=== PATIENT | male | born 1980 ===

== ENCOUNTER 2016-05-25 09:28 | Observation (INO) | payer OTHER ==
[2016-05-25 09:43] VITALS: BMI 28.0
[2016-05-25 10:00] VITALS: TEMP 97.6
[2016-05-25] MEDS ORDERED: Morphine 2 mg/ml ISec IVP STA (10:10)
[2016-05-25] MEDS ORDERED: Morphine 4 mg/ml ISec IVP STA ×2 (10:21→12:26)
--- NOTE | 2016-05-25 10:22 | ED PDOC ---
Arrival/HPI - General Historian: Patient - History of Present Illness Time/Duration: Prior to Arrival, 1 hour Symptom Onset: Sudden Symptom Course: Unchanged Severity Level: 7, 8 <Mukund Bee - Last Filed: 05/25/16 14:36> <Rica Black - Last Filed: 05/25/16 14:58> - General Chief Complaint: Back Pain Time Seen by Provider: 05/25/16 09:38 - History of Present Illness Narrative History of Present Illness (Text): 05/25/16 10:08 This is a 35 year old male without PMH presenting with acute onset low back pain. The patient reports that he was lifting a propane tank at work and then felt a pop followed by a sharp sudden pain in his low back. The patient also notes that he felt numbness across the plantar aspect of his toes. The patient states that he was able to ambulate following the injury, but the pain in his back kept him from maintaining an erect posture. The patient denies radicular type pain to either leg, and he also denies bowel/bladder incontinence. The patient states that advil did not help his pain. The patient has never experienced pain like this before. (Mukund Bee) Past Medical History - Provider Review Nursing Documentation Reviewed: Yes - Past History Past History: No Previous - Infectious Disease Hx of Infectious Diseases: None - Tetanus Immunization Tetanus Immunization: Unknown - Past Medical History Past Medical History: No Previous <Mukund Bee - Last Filed: 05/25/16 14:36> - Cardiac Hx Cardiac Disorders: No - Pulmonary Hx Respiratory Disorders: No - Neurological Hx Neurological Disorder: No - HEENT Hx HEENT Disorder: No - Renal Hx Renal Disorder: No - Endocrine/Metabolic Hx Endocrine Disorders: No - Hematological/Oncological Hx Blood Disorders: No - Integumentary Hx Dermatological Disorder: No - Musculoskeletal/Rheumatological Hx Musculoskeletal Disorders: No - Gastrointestinal Hx Gastrointestinal Disorders: No - Genitourinary/Gynecological Hx Genitourinary Disorders: No - Psychiatric Hx Psychophysiologic Disorder: No Hx Substance Use: No - Anesthesia Hx Anesthesia: No <Rica Black - Last Filed: 05/25/16 14:58> Family/Social History - Physician Review Nursing Documentation Reviewed: Yes Family/Social History: No Known Family HX Smoking Status: Never Smoked Hx Alcohol Use: No Hx Substance Use: No <Mukund Bee - Last Filed: 05/25/16 14:36> Smoking Status: Never Smoked Hx Alcohol Use: No Hx Substance Use: No <Rica Black - Last Filed: 05/25/16 14:58> Allergies/Home Meds <Mukund Bee - Last Filed: 05/25/16 14:36> <Rica Black - Last Filed: 05/25/16 14:58> Allergies/Adverse Reactions: Allergies No Known Allergies Allergy (Verified 05/25/16 09:43) Review of Systems - Physician Review All systems were reviewed & negative as marked: Yes - Review of Systems Constitutional: absent: Fatigue Eyes: absent: Vision Changes Respiratory: absent: SOB Cardiovascular: absent: Chest Pain Gastrointestinal: absent: Abdominal Pain Genitourinary Male: absent: Dysuria Musculoskeletal: Back Pain, Myalgias Skin: absent: Rash Neurological: Gait Changes. absent: Dizziness, Focal Weakness Psychiatric: absent: Anxiety <uMkund Bee - Last Filed: 05/25/16 14:36> Physical Exam Temperature: Afebrile Blood Pressure: Normal Pulse: Regular Respiratory Rate: Normal Appearance: Positive for: Non-Toxic. No: Comfortable Pain Distress: Severe Mental Status: Positive for: Alert and Oriented X 3 - Systems Exam Head: Present: Atraumatic, Normocephalic Pupils: Present: PERRL Extroacular Muscles: Present: EOMI Conjunctiva: Present: Normal Mouth: Present: Moist Mucous Membranes Neck: Present: Normal Range of Motion Respiratory/Chest: Present: Clear to Auscultation, Good Air Exchange. No: Respiratory Distress, Accessory Muscle Use Cardiovascular: Present: Regular Rate and Rhythm, Normal S1, S2. No: Murmurs Abdomen: Present: Normal Bowel Sounds. No: Tenderness, Distention, Peritoneal Signs Back: Present: Midline Tenderness, Pain with Leg Raise, Other (hunched posture as position of comfort ) Upper Extremity: Present: Normal Inspection, Normal ROM, NORMAL PULSES, Neurovascularly Intact, Capillary Refill < 2s. No: Cyanosis, Edema Lower Extremity: Present: Normal Inspection, NORMAL PULSES. No: Edema, CALF TENDERNESS, Neurovascularly Intact (paresthesias plantar aspect of right foot digits) Neurological: Present: CN II-XII Intact, Speech Normal. No: Norm Deep Tendon Reflexes (3+/4 patellar reflex on right 2+/4 on the left ), Gait Normal ( antalgic gait 2/2 to back pain ) Skin: Present: Warm, Dry, Normal Color. No: Rashes Psychiatric: Present: Alert, Oriented x 3 <Mukund Bee - Last Filed: 05/25/16 14:36> Vital Signs Temp Pulse Resp BP Pulse Ox 05/25/16 14:51 83 16 98 05/25/16 14:04 85 16 140/95 H 98 05/25/16 12:47 71 16 110/80 100 05/25/16 09:59 97.6 F 80 18 119/82 96 Medical Decision Making Re-evaluation Time: 13:25 Reassessment Condition: Re-examined, Unchanged - RAD Interpretation Inspector Receiving: Radiologist <Mukund Bee - Last Filed: 05/25/16 14:36> <Rica Black - Last Filed: 05/25/16 14:58> ED Course and Treatment: 05/25/16 10:11 Impression: This is a 35 year old male without PMH presenting with acute onset low back pain. The patient has the clinical appearance of a herniated disc. The patient maintains a posture indicative of posterolateral herniation to the right side as he is flexed and sidebect to the right as to maximize interveterbral space on the right side. The patient reports resolution of the paresthesia in his foot with this position. The patient is able to walk although he maintains a forward flexed posture. Differential: Intervertebral Disc Herniation Paraspinal Muscle Pull Lumbosacral Sprain Spinal Stenosis Plan: MRI Lumbar spine Morphine 1mg Prior Visits: None Progress Note: The patient was seen and examined at bedside. The patient has the clinical appearacce of an intervertebral disc herniation. The patient is able to walk, although with an antalgic gait. The patient will be managed with morphine for pain and have an MRI of his lumbar spine 05/25/16 13:26 The patient's lumbar spine MRI revealed moderate degenerative disc changes in addition to foraminal stenosis. The patient reports having began the application for wind[facility] care at [facility]. He was instructed to follow up in that institution if his back pain does no joyce with stretching and PT exercises. The patient reports that his pain is under control. 05/25/16 14:48 The discharge plan was discussed with the patient, and he acknowledged understanding. The patient was medically stabilized and DC home. Patient was able to ambulate without issue prior to discharge. (Mukund Bee) Patient Seen With Resident: In agreement with resident note. Patient was seen and evaluated with resident, came up with plan and treatment together. On evaluation patient had pain but was neurologically intact. He reported history of paresthesias in toe that has since resolved and he reports he thought was secondary to positioning. However , due to this complaint, will get MRI to r/o spinal cord compression. Lumbar Spine MRI: FINDINGS: Normal lumbar lordosis. Vertebral body heights are preserved. Marrow signal unremarkable. Conus medullaris unremarkable at the level of T12-L1 Paraspinal soft tissues are unremarkable. T12-L1: No disc herniation, spinal canal stenosis or neural foraminal narrowing. L1-2: Moderate degenerative disc changes associated with [id number]-cr-tedbrcve narrowing of the disc space. Small to moderate size osteophyte disc bulging complex associated with mild posterior ligament and facet joint hypertrophy which resulting in mild spinal and left neural foraminal narrowing. L2-3: Moderate degenerative disc changes associated with mild narrowing of the disc space. Broad-based disc protrusion associated with mild posterior ligament and facet joint hypertrophy which resulting in mild spinal stenosis. L3-4: Mild degenerative disc changes. Small broad-based disc bulging associated with posterior ligament and facet joint hypertrophy which resulting in mild spinal and lateral recess narrowing bilaterally. L4-5: Small to moderate-sized disc bulging associated with posterior ligament and facet joint hypertrophy which resulting in mild to moderate spinal and lateral recess narrowing bilaterally. L5-S1: Small broad-based disc bulging associated with mild ligament and facet joint hypertrophy which resulting in mild spinal stenosis. IMPRESSION: Moderate degenerative disc changes. Multilevel osteophyte disc bulging complex associated with mild posterior ligament and facet joint hypertrophy which resulting in spinal and neural foramina narrowing as described above. The spinal and neural foramina stenosis are more prominent at L1-L2 and L3-L4. 05/25/16 14:55 On reevaluation, patient is ambulating around the ED. He has no bladder or bowel incontinence and no saddle anesthesia. He reports pain is improved. Patient was offered referral to ortho spine but reports that he will follow-up at hospital closer to his home. He has given detailed return instructions through use of fixture repairer fabricator and he reports understanding that he needs to return immediately with any weakness, numbness, or change in bowel or bladder habits. He was also given copy of MRI. (Rica Black) - RAD Interpretation Narrative RAD Interpretations (Text): 05/25/16 14:49 PROCEDURE: MR LUMBAR SPINE WITHOUT CONTRAST HISTORY: back pain COMPARISON: None available. TECHNIQUE: Multiecho multiplanar sequences were performed through the lumbar spine without the use of intravenous contrast. FINDINGS: Normal lumbar lordosis. Vertebral body heights are preserved. Marrow signal unremarkable. Conus medullaris unremarkable at the level of T12-L1 Paraspinal soft tissues are unremarkable. T12-L1: No disc herniation, spinal canal stenosis or neural foraminal narrowing. L1-2: Moderate degenerative disc changes associated with [id number] narrowing of the disc space. Small to moderate size osteophyte disc bulging complex associated with mild posterior ligament and facet joint hypertrophy which resulting in mild spinal and left neural foraminal narrowing. L2-3: Moderate degenerative disc changes associated with mild narrowing of the disc space. Broad-based disc protrusion associated with mild posterior ligament and facet joint hypertrophy which resulting in mild spinal stenosis. L3-4: Mild degenerative disc changes. Small broad-based disc bulging associated with posterior ligament and facet joint hypertrophy which resulting in mild spinal and lateral recess narrowing bilaterally. L4-5: Small to moderate-sized disc bulging associated with posterior ligament and facet joint hypertrophy which resulting in mild to moderate spinal and lateral recess narrowing bilaterally. L5-S1: Small broad-based disc bulging associated with mild ligament and facet joint hypertrophy which resulting in mild spinal stenosis. OTHER FINDINGS: None. IMPRESSION: Moderate degenerative disc changes. Multilevel osteophyte disc bulging complex associated with mild posterior ligament and facet joint hypertrophy which resulting in spinal and neural foramina narrowing as described above. The spinal and neural foramina stenosis are more prominent at L1-L2 and L3-L4. ( Mukund Bee) Radiology Orders: 05/25/16 10:10 SPINAL CANAL LUMBAR W/O CONT [MRI] Stat - Medication Orders Current Medication Orders: Discontinued Medications Cyclobenzaprine HCl (Flexeril) 5 mg PO STAT STA Stop: 05/25/16 12:27 Last Admin: 05/25/16 12:42 Dose: 5 MG Diazepam (Valium) 5 mg PO STAT STA PRN Reason: Protocol Stop: 05/25/16 13:19 Last Admin: 05/25/16 13:33 Dose: 5 MG Behavioural Document 05/25/16 13:33 [email or web address] (Rec: 05/25/16 13:[address] [id number]) Maintenance Maintenance Dose No Nonmedicinal Nonmedicinal Interventions Redirect Behavior Behavior for Medication: Anxiety Behavior Comment pain Ketorolac Tromethamine (Toradol) 30 mg IVP STAT STA Stop: 05/25/16 13:19 Last Admin: 05/25/16 13:34 Dose: 30 MG IVP Administration Document 05/25/16 13:34 [email or web address] (Rec: 05/25/16 13:[address] [id number]) Charges for Administration # of IVP Administrations 1 Morphine Sulfate (Morphine) 1 mg IVP STAT STA Stop: 05/25/16 10:11 Last Admin: 05/25/16 10:24 Dose: 1 MG MAR Pain Assessment Document 05/25/16 10:24 [email or web address] (Rec: 05/25/16 10:[address] [id number]) Pain Reassessment Is this a pain reassessment? No Sleep Is patient sleeping during reassessment? No Presence of Pain Presence of Pain Yes Pain Scale Used Pain Scale Used Numeric Location Upper or Lower Lower Pain Location Body Site Back Description Description Sharp Intensity of Pain at present 9 Pain Behavior Facial Grimacing Aggravating Factors Changing Position Alleviating Factors/Management Position Change Techniques Alleviating Factors Medication IVP Administration Document 05/25/16 10:24 [email or web address] (Rec: 05/25/16 10:[address] [id number]) Charges for Administration # of IVP Administrations 1 Morphine Sulfate (Morphine) 4 mg IVP STAT STA Stop: 05/25/16 10:22 Last Admin: 05/25/16 10:29 Dose: 4 MG MAR Pain Assessment Document 05/25/16 10:29 [email or web address] (Rec: 05/25/16 10:34 [place] [id number]) Pain Reassessment Is this a pain reassessment? No Sleep Is patient sleeping during reassessment? No Presence of Pain Presence of Pain Yes Pain Scale Used Pain Scale Used Numeric Location Upper or Lower Lower Pain Location Body Site Back Description Description Constant Intensity of Pain at present 9 Pain Behavior Facial Grimacing Aggravating Factors Changing Position Alleviating Factors/Management Position Change Techniques Alleviating Factors Medication IVP Administration Document 05/25/16 10:29 [email or web address] (Rec: 05/25/16 10:34 [email or web address] [id number]) Charges for Administration # of IVP Administrations 1 Morphine Sulfate (Morphine) 8 mg IVP STAT STA Stop: 05/25/16 12:27 Last Admin: 05/25/16 12:41 Dose: 8 MG MAR Pain Assessment Document 05/25/16 12:41 [email or web address] (Rec: 05/25/16 12:[id number]) Pain Reassessment Is this a pain reassessment? No Sleep Is patient sleeping during reassessment? No Presence of Pain Presence of Pain Yes Pain Scale Used Pain Scale Used Numeric Location Upper or Lower Lower Pain Location Body Site Back Description Description Constant Intensity of Pain at present 7 Pain Behavior Facial Grimacing Aggravating Factors Changing Position Alleviating Factors/Management Position Change Techniques Alleviating Factors Medication IVP Administration Document 05/25/16 12:41 [email or web address] (Rec: 05/25/16 12:[id number]) Charges for Administration # of IVP Administrations 1 Disposition/Present on Arrival - Present on Arrival Any Indicators Present on Arrival: No History of DVT/PE: No History of Uncontrolled Diabetes: No Urinary Catheter: No History of Decub. Ulcer: No - Disposition Have Diagnosis and Disposition been Completed?: Yes Disposition Time: 14:00 Patient Plan: Discharge <Mukund Bee - Last Filed: 05/25/16 14:36> - Present on Arrival Any Indicators Present on Arrival: No History of DVT/PE: No History of Uncontrolled Diabetes: No Urinary Catheter: No History of Decub. Ulcer: No History Surgical Site Infection Following: None - Disposition Have Diagnosis and Disposition been Completed?: Yes Disposition Time: 10:59 <Rica Black - Last Filed: 05/25/16 14:58> - Disposition Diagnosis: Spinal stenosis of lumbar region, Lumbar disc disease Disposition: HOME/ ROUTINE Condition: GOOD
--- NOTE | 2016-05-25 12:03 | MRI ---
PROCEDURE: MR LUMBAR SPINE WITHOUT CONTRAST HISTORY: back pain COMPARISON: None available. TECHNIQUE: Multiecho multiplanar sequences were performed through the lumbar spine without the use of intravenous contrast. FINDINGS: Normal lumbar lordosis. Vertebral body heights are preserved. Marrow signal unremarkable. Conus medullaris unremarkable at the level of T12-L1 Paraspinal soft tissues are unremarkable. T12-L1: No disc herniation, spinal canal stenosis or neural foraminal narrowing. L1-2: Moderate degenerative disc changes associated with [id number] narrowing of the disc space. Small to moderate size osteophyte disc bulging complex associated with mild posterior ligament and facet joint hypertrophy which resulting in mild spinal and left neural foraminal narrowing. L2-3: Moderate degenerative disc changes associated with mild narrowing of the disc space. Broad-based disc protrusion associated with mild posterior ligament and facet joint hypertrophy which resulting in mild spinal stenosis. L3-4: Mild degenerative disc changes. Small broad-based disc bulging associated with posterior ligament and facet joint hypertrophy which resulting in mild spinal and lateral recess narrowing bilaterally. L4-5: Small to moderate-sized disc bulging associated with posterior ligament and facet joint hypertrophy which resulting in mild to moderate spinal and lateral recess narrowing bilaterally. L5-S1: Small broad-based disc bulging associated with mild ligament and facet joint hypertrophy which resulting in mild spinal stenosis. OTHER FINDINGS: None. IMPRESSION: Moderate degenerative disc changes. Multilevel osteophyte disc bulging complex associated with mild posterior ligament and facet joint hypertrophy which resulting in spinal and neural foramina narrowing as described above. The spinal and neural foramina stenosis are more prominent at L1-L2 and L3-L4.
[2016-05-25 12:49] VITALS: RESP 16
[2016-05-25 14:19] VITALS: BP 140/95; O2SAT 98
[2016-05-25 14:52] VITALS: PULSE 83
== END 2016-05-25 14:35 | disposition home or self-care (01) ==
LOC: ED 09:28 → EROBSV 10:21
PROVIDERS: ADMIT Emergency Medicine; ATTEND Emergency Medicine
DX: M48.06 Spinal stenosis, lumbar region (principal); M51.9 Unspecified thoracic, thoracolumbar and lumbosacral intervertebral disc disorder
CPT/HCPCS: 72148; 96374; 96375; 96376; 99283; G0378; J1885; J2270